=== PATIENT | female | born 2000 | race Caucasian/White ===

== ENCOUNTER 2020-07-16 21:32 | Emergency (ER) | payer MEDICAID, SELFPAY ==
[2020-07-16 21:37] VITALS: BP 127/84; PULSE 86; RESP 16; TEMP 36.3; O2SAT 100; BMI 23.2
--- NOTE | 2020-07-16 22:01 | US_ITS ---
WS: [id number] Obstetrical ultrasound, less than 14 weeks. HISTORY: Abdominal pain in . Transvaginal imaging is submitted. There is an intrauterine gestational sac towards the fundus with a mean sac diameter of 0.55 cm. Gestational age of 5 weeks and 3 days. No pole or cardiac activi ty is identified at this time. The cervix is closed. There is a small adjacent implantation or subcho rionic hemorrhage measuring 12 x 4 mm. No free fluid in the cul-de-sac. RIGHT ovary is normal size. LEFT ovary is not identified. No adnexal masses. US/US OB lmt with transvaginal IMPRESSION: 1. Probable early intrauterine gestation of 5 weeks and 3 days. No cardiac acti vity or pole are identified to confirm intrauterine gestation. 2. Recommend one week follow-up to confirm normal developing embryo.
--- NOTE | 2020-07-16 22:59 | ED_ITS ---
HPI - Female Genitourinary General: Chief complaint: Urogenital-Female Stated complaint: irregular vaginal discharge/5 weeks preg Time Seen by Provider: 07/16/20 22:13 Source: patient Mode of arrival: ambulatory Limitations: no limitations History of Present Illness: HPI Narrative: 19-year-old female states she is roughly 5 weeks . States she is had some slight bleeding clear discharge. She states this is her first in 1 to make sure she was not having a miscarriage. She has had slight abdominal cramping she rates a 1 out of 10. Denies any fever or vomiting. Denies any worsening or improving factors. Associated symptoms: Reports abdominal pain; Deny headache(s) Date of Last Menstrual Period: 06/04/20 Review of Systems Const: Denies: fever(s), chills, body aches or change in appetite Eyes: Denies: blurry vision or eye discomfort ENMT: Denies: throat pain or dental pain Card: Denies: chest pain Resp: Denies: dyspnea GI: Reports: abdominal pain : Denies: dysuria Musc: Denies: neck pain or back pain Skin/Breast: Denies: rash Neuro: Denies: headache(s) Psych: Denies: depression Farhat/Lymph: Denies: easy bruising All/Imm: Denies: urticaria [facility] ED Female Reproductive History: Date of last menstrual period: 06/04/20 Physical Exam Const: COMMON NORMALS: no acute distress, patient oriented x3 and healthy appearing HENMT: COMMON NORMALS: normocephalic and atraumatic HEAD & SCALP: normocephalic and atraumatic Eye: COMMON NORMALS: Equal, round and reactive pupils present and EOMs intact bilaterally PUPIL: Yes Equal, round and reactive pupils present Neck/C-Spine: COMMON NORMALS: full ROM and supple Chest: COMMONS NORMALS: normal inspection of the chest and normal palpation of entire chest wall Resp: COMMON NORMALS: normal respiratory effort, No retractions, No use of accessory muscles and clear to auscultation bilaterally AUSCULTATION: clear to auscultation bilaterally Cardio: COMMON NORMALS: regular rate, regular rhythm and No murmurs present (Cardio) RATE: regular rate RHYTHM: regular rhythm GI: COMMON NORMALS: Normal to inspection, nondistended, normoactive bowel sounds present, Soft to palpation, non-tender and no masses PALPATION: Yes Soft to palpation Extremity: COMMON NORMALS: normal to inspection and full ROM Neuro: COMMON NORMALS: patient oriented x3, moves all extremities and no focal motor deficits Psych: COMMON NORMALS: mental status grossly normal, Normal thought process present and cooperative THOUGHT PROCESS: Normal thought process present Skin: COMMON NORMALS: no rashes or lesions noted and no wounds GENERAL SKIN EXAM: no rashes or lesions noted Course Vital Signs: Vital signs: Vital Signs Temperature 97.3 F L 07/16/20 21:37 Pulse Rate 86 07/16/20 21:37 Respiratory Rate 16 07/16/20 21:37 Blood Pressure 127/84 07/16/20 21:37 Pulse Oximetry 100 07/16/20 23:23 MDM - Female MDM Narrative: Medical decision making narrative: Patient presents here with slight bleeding in . She has no bleeding here and is well-appearing. Patient's ultrasound shows gestational sac with no signs of ectopic. She is well-appearing here and is stable for discharge. She is to follow-up and return if worsening. Lab Data: Labs: Lab Results 07/16/20 07/16/20 Range/Units 22:58 22:58 HCG, Qual Positive H (Negative) Urine Color Yellow (Yellow) Urine Appearance Clear (CLEAR) Urine pH 6 (5-7) Ur Specific Gravit y 1.015 (1.005-1.030) Urine Protein Neg (Negative) Urine Glucose (UA) Norm (Normal) Urine Ketones Negative (Negative) Urine Blood Neg (Negative) Urine Nitrate Negative (Negative) Urine Bilirubin Neg (Negative) Urine Urobilinogen Norm (Negative) mg/dL Ur Leukocyte Dimple ase Negative (Negative) Discharge Plan Discharge Patient Disposition: Home Clinical Impression: Abdominal pain in Condition: Stable Discharge Orders: Discharge Order (Routine); Ordered 07/17/20 Ordered By: Chiquita Downing Discharge Diet: Advance as tolerated Discharge Activity: Resume usual activity Patient Instructions: Abdominal Pain (ED) Discharge Date/Time: 07/17/20 00:32 Coding Level of Care Code ED Java Flex Developer for Somg Fwtrish Exam Comprehensive
[2020-07-16 23:06] LABS: HCG Qualitative Urine. Positive (Negative)
--- NOTE | 2020-07-16 23:20 | PC.NURSE ---
TRANSVAGINAL ULTRASOUND DONE WITH NURSE REYES PRESENT. PT TOLERATED WELL. YOLK SAC OBSERVED. URINE SAMPLE TAKEN TO LAB.
[2020-07-16 23:23] VITALS: O2SAT 100
[2020-07-16 23:51] LABS: Add Urine Microscopic? NO
[2020-07-16 23:56] LABS: Bilirubin Urine Neg (Negative); Blood Urine Neg (Negative); Glucose Urine UA Norm (Normal); Ketones Urine Negative (Negative); Leukocyte Esterase Urine Negative (Negative); Nitrate Urine Negative (Negative); Protein Urine Neg (Negative); Specific Gravity, Urine 1.015 (1.005-1.030); Urine Appearance Clear (CLEAR); Urine Color Yellow (Yellow); Urobilinogen Urine Norm (Negative); pH Urine 6 (5-7)
[2020-07-17 00:31] VITALS: RESP 16
== END 2020-07-17 00:32 | disposition home or self-care (01) ==
PROVIDERS: Emergency Provider Emergency Medicine
DX: O26.891 Other specified pregnancy related conditions, first trimester (principal); R10.9 Unspecified abdominal pain; Z3A.01 Less than 8 weeks gestation of pregnancy
CPT/HCPCS: 12345; 76801; 76815; 76817; 81003; 81025; 99283

== ENCOUNTER 2020-07-28 09:46 | Emergency (ER) | payer MEDICAID, SELFPAY ==
[2020-07-28 09:57] VITALS: BP 110/71; PULSE 76; RESP 16; TEMP 37; O2SAT 100; BMI 23.2
[2020-07-28 10:04] VITALS: BP 110/71; PULSE 83; RESP 16; O2SAT 99
--- NOTE | 2020-07-28 10:45 | ED_ITS ---
HPI - General: Chief complaint: Vaginal Bleeding Stated complaint: 7 WKS , BLEEDING Time Seen by Provider: 07/28/20 10:20 Source: patient Mode of arrival: ambulatory Limitations: no limitations History of Present Illness: HPI Narrative: one episode of bright red blood this am when bearing down for BM-7 weeks Date of Last Menstrual Period: 06/04/20 Related Data: : 1 Review of Systems General: Reports: 10 or more systems reviewed and unremarkable except in HPI and below PFS ED Female Reproductive History: Date of last menstrual period: 06/04/20 : 1 Physical Exam Const: COMMON NORMALS: no acute distress, patient oriented x3, no limitations and alert GENERAL APPEARANCE: cooperative and comfortable ORIENTATION/CONSCIOUSNESS: Yes awake, Yes oriented to person, Yes oriented to place and Yes oriented to time HENMT: COMMON NORMALS: normocephalic, atraumatic, external ears normal, EAC's normal, TM's normal bilaterally and Normal external nose present HEAD & SCALP: normal to inspection, normocephalic and atraumatic FACE & SINUS: normal facial exam, sinuses nontender and face symmetric NOSE: Normal external nose present, Normal nares present and No nasal discharge present EXTERNAL EAR: Yes external ears normal EXTERNAL AUDITORY CANAL: EAC's normal TYMPANIC MEMBRANE: TM's normal bilaterally MOUTH: Normal oral and palatal mucosa present, lip normal and tongue normal THROAT: posterior oropharynx normal, tonsils normal and uvula midline Eye: COMMON NORMALS: Equal, round and reactive pupils present, EOMs intact bilaterally and conjunctivae normal GENERAL EYE: appearance normal, both eyes and all related structures and normal light reflex EYELID: eyelids normal CONJUNCTIVA: Yes conjunctivae normal PUPIL: Yes Equal, round and reactive pupils present EOM: Yes EOM abnormal DIRECT OPHTHALMOSCOPY: Yes normal light reflex Neck/C-Spine: COMMON NORMALS: full ROM, no lymphadenopathy, supple, no meningeal signs, no JVD and Thyroid normal GENERAL: Yes normal visual inspection THYROID: Thyroid normal CERVICAL SPINE: Yes cervical ROM normal and Yes normal cervical lordosis Lymph: LYMPHATIC: no lymphadenopathy noted Chest: COMMONS NORMALS: normal inspection of the chest and normal palpation of entire chest wall Resp: COMMON NORMALS: normal respiratory effort, No retractions and clear to auscultation bilaterally AUSCULTATION: clear to auscultation bilaterally Cardio: COMMON NORMALS: no JVD, regular rate, regular rhythm, S1 normal heart sound present, S2 normal heart sound present, No gallops present (Cardio), No clicks present (Cardio), No murmurs present (Cardio), No rub (Cardio) and Peripheral pulses 2+ throughout RATE: regular rate RHYTHM: regular rhythm HEART SOUNDS: S1 normal heart sound present and S2 normal heart sound present PERIPHERAL PULSES: Peripheral pulses 2+ throughout GI: COMMON NORMALS: Normal to inspection, nondistended, normoactive bowel sounds present, Soft to palpation, non-tender and no masses PALPATION: Yes Soft to palpation : COMMON NORMALS: Yes no CVA tenderness and Yes normal external appearance BLADDER/KIDNEY EXAM: Yes no CVA tenderness Back/Pelvis: COMMON NORMALS: no CVA tenderness, thoracic and lumbar spine normal to inspection, no thoracic nor lumbar tenderness and thoraco-lumbar ROM normal Extremity: COMMON NORMALS: normal to inspection, full ROM, capillary refill normal, no joint enlargement, no clubbing, cyanosis or edema, no calf tenderness and no pedal edema GENERAL: Yes normal exam except as noted Neuro: COMMON NORMALS: patient oriented x3, moves all extremities, no focal mo tor deficits, no sensory deficits noted and gait normal SENSORIUM/ORIENTATION: Yes alert, Yes oriented to person, Yes oriented to place and Yes oriented to time MENINGEAL SIGNS: Yes no meningeal signs Psych: COMMON NORMALS: mental status grossly normal, Normal thought process present, cooperative, normal affect, speech normal and activity/motor behavior normal SPEECH: Yes normal speech THOUGHT PROCESS: Normal thought process present Skin: COMMON NORMALS: no rashes or lesions noted, no wounds and turgor normal GENERAL SKIN EXAM: no rashes or lesions noted and turgor normal Course ED course: Pt presents to ER with complaints of bright red blood when bearing down for BM this morning. Pt did have sex last night as well. Pt had episode of vomiting and has intermittent nausea consistent with her . Pt had US done at 5 weeks which concluded an interauterine . We will do UA and hcg quant. Reevaluation(s): Reevaluation #1: Pt HC over 39,000 and negative for any bacteria in urine. Bleeding has stopped. We will proceed with DC and set her up with OB. Time: 12:13 Vital Signs: Vital signs: Vital Signs Temperature 98.6 F 07/28/20 09:57 Pulse Rate 83 09/29/20 10:04 Respiratory Rate 16 07/28/20 10:04 Blood Pressure 110/71 07/28/20 10:04 Pulse Oximetry 99 07/28/20 10:04 MDM - OB/Uterine Contractions Lab Data: Labs: Lab Results 07/28/20 07/28/20 Range/Units 11:09 11:14 Ser , Priyanka i-Qnt 61354.00 mIU/mL Urine Color Yellow (Yellow) Urine Appearance Clear (CLEAR) Urine pH 5 (5-7) Ur Specific Gravit y 1.005 (1.005-1.030) Urine Protein Neg (Negative) Urine Glucose (UA) Norm (Normal) Urine Ketones Negative (Negative) Urine Blood Neg (Negative) Urine Nitrate Negative (Negative) Urine Bilirubin Neg (Negative) Urine Urobilinogen Norm (Negative) mg/dL Ur Leukocyte Dimple ase Negative (Negative) Discharge Plan Discharge Patient Disposition: Home Clinical Impression: Normal in first trimester, Dysfunctional uterine bleeding Condition: Stable Prescriptions: No Action Tylenol Extra Strength 500 mg Tablet 500 mg PO PRN RF: 0 28 mg iron- 800 mcg Tablet 1 tab PO DAILY RF: 0 Discharge Orders: Discharge Order (Routine); Ordered 07/28/20 Ordered By: Anuradha Napoles Discharge Diet: Usual diet Discharge Activity: Increase activity as tolerated Activity Restrictions/Additional Instructions: Follow up with OB as scheduled. Return for any new or concerning symptoms. Rest and increase water intake over the next one week. Coding Level of Care Code ED Water Plumber for Marisabel Fwd Exam Comprehensive
--- NOTE | 2020-07-28 10:46 | PC.NURSE ---
Rounded on patient. Introduced self at this time. patient resting in bed. No distress noted. Will continue to monitor patient
[2020-07-28 11:23] LABS: Add Urine Microscopic? NO
[2020-07-28 11:30] LABS: Bilirubin Urine Neg (Negative); Blood Urine Neg (Negative); Glucose Urine UA Norm (Normal); Ketones Urine Negative (Negative); Leukocyte Esterase Urine Negative (Negative); Nitrate Urine Negative (Negative); Protein Urine Neg (Negative); Specific Gravity, Urine 1.005 (1.005-1.030); Urine Appearance Clear (CLEAR); Urine Color Yellow (Yellow); Urobilinogen Urine Norm (Negative); pH Urine 5 (5-7)
== END 2020-07-28 12:22 | disposition home or self-care (01) ==
PROVIDERS: Emergency Provider Nurse Practitioner Family
DX: O46.8X1 Other antepartum hemorrhage, first trimester (principal); Z3A.01 Less than 8 weeks gestation of pregnancy
CPT/HCPCS: 12345; 36415; 81003; 84702; 99282

== ENCOUNTER 2020-09-10 17:09 | Emergency (ER) | payer MEDICAID, SELFPAY ==
[2020-09-10 17:33] VITALS: BP 131/87; PULSE 89; RESP 18; TEMP 36.9; O2SAT 96; BMI 22.8
--- NOTE | 2020-09-10 19:30 | ED_ITS ---
HPI - Female Genitourinary General: Chief complaint: Urogenital-Female Stated complaint: 13 wks /Bleeding Time Seen by Provider: 09/10/20 18:56 Source: patient Mode of arrival: ambulatory Limitations: no limitations History of Present Illness: HPI Narrative: 19-year-old female who states she is currently 12 weeks and had some spotting earlier today. She states when she wiped she had blood lasted roughly an hour. States bleeding is since stopped. She denies passing any tissue or clots. She states she has had no pain as well. Denies any vomiting or diarrhea. Associated symptoms: Deny abdominal pain, headache(s) or nausea Date of Last Menstrual Period: 06/16/20 Review of Systems Const: Denies: fever(s), chills, body aches or change in appetite Eyes: Denies: blurry vision or eye discomfort ENMT: Denies: throat pain or dental pain Card: Denies: chest pain Resp: Denies: dyspnea GI: Denies: abdominal pain, nausea, vomiting or diarrhea : Reports: vaginal bleeding Musc: Denies: neck pain or back pain Skin/Breast: Denies: rash Neuro: Denies: headache(s) Psych: Denies: depression Farhat/Lymph: Denies: easy bruising All/Imm: Denies: urticaria [facility] ED Female Reproductive History: Date of last menstrual period: 06/16/20 Physical Exam Const: COMMON NORMALS: no acute distress, patient oriented x3 and healthy appe aring HENMT: COMMON NORMALS: normocephalic and atraumatic HEAD & SCALP: normocephalic and atraumatic Eye: COMMON NORMALS: Equal, round and reactive pupils present and EOMs intact bilaterally PUPIL: Yes Equal, round and reactive pupils present Neck/C-Spine: COMMON NORMALS: full ROM and supple Chest: COMMONS NORMALS: normal inspection of the chest and normal palpation of entire chest wall Resp: COMMON NORMALS: normal respiratory effort, No retractions, No use of accessory muscles and clear to auscultation bilaterally AUSCULTATION: clear to auscultation bilaterally Cardio: COMMON NORMALS: regular rate, regular rhythm and No murmurs present (Cardio) RATE: regular rate RHYTHM: regular rhythm GI: COMMON NORMALS: Normal to inspection, nondistended, normoactive bowel sounds present, Soft to palpation, non-tender and no masses PALPATION: Yes Soft to palpation Extremity: COMMON NORMALS: normal to inspection and full ROM Neuro: COMMON NORMALS: patient oriented x3, moves all extremities and no focal motor deficits Psych: COMMON NORMALS: mental status grossly normal, Normal thought process present and cooperative THOUGHT PROCESS: Normal thought process present Skin: COMMON NORMALS: no rashes or lesions noted and no wounds GENERAL SKIN EXAM: no rashes or lesions noted Course Vital Signs: Vital signs: Vital Signs Temperature 98.5 F 09/10/20 17:33 Pulse Rate 89 09/10/20 17:33 Respiratory Rate 18 09/10/20 17:33 Blood Pressure 131/87 09/10/20 17:33 Pulse Oximetry 96 09/10/20 17:33 MDM - Female MDM Narrative: Medical decision making narrative: Patient presents here with a threatened miscarriage. Bedside ultrasound showed IUP consistent with dates with heart rate of 142. Patient's blood type is negative will give RhoGam here. She has had no more bleeding and is stable for discharge. She is to follow-up with OB in 2 to 4 days return if worsening. Lab Data: Labs: Lab Results 09/10/20 09/10/20 09/10/20 Range/Units 19:21 19:21 19:21 WBC 13.9 H (4.5-13.0) 10^3/ uL RBC 4.28 (4.1-5.3) 10^6/u L Hgb 13.1 (11.5-15.3) g/dL Hct 38.8 (37.0-47.0) % MCV 90.7 (81-99) fL MCH 30.6 (28.0-34.0) pg MCHC 33.8 (30.0-36.0) g/dL RDW 12.1 (12.1-15.1) % Plt Count 230 (130-400) 10^3/c mm MPV 11.4 H (7.4-10.4) fL Neut % (Auto) 68.7 % Lymph % (Auto) 19.9 % [place] % (Auto) 7.7 % Eos % (Auto) 2.8 % Baso % (Auto) 0.5 % Neut # (Auto) 9.53 H (1.8-8.0) 10^3/u L Lymph # (Auto) 2.8 (1.5-6.5) 10^3/u L [place] # (Auto) 1.1 H (0.2-0.9) 10^3/u L Eos # (Auto) 0.4 (0.0-0.8) 10^3/u L Baso # (Auto) 0.1 (0.0-0.1) 10^3/u L Nucleated RBC % (a uto) 0 % Nucleated RBCs # 0.0 /100WBC Ser , Priyanka i-Qnt 560322.00 mIU/mL Rho(D) Type Negative Discharge Plan Discharge Patient Disposition: Home Clinical Impression: Threatened miscarriage Condition: Stable Prescriptions: No Action Tylenol Extra Strength 500 mg Tablet 500 mg PO PRN RF: 0 28 mg iron- 800 mcg Tablet 1 tab PO DAILY RF: 0 Discharge Orders: Discharge Order (Routine); Ordered 09/10/20 Ordered By: Chiquita Downing Discharge Diet: Advance as tolerated Discharge Activity: Resume usual activity Patient Instructions: Threatened Miscarriage (ED) Coding Level of Care Code ED Candy Bar Attendant for Marisabel Fwd Exam Comprehensive
[2020-09-10 19:39] LABS: Basophils # 0.1 10^3/uL (0.0-0.1); Basophils % 0.5 %; Eosinophils # 0.4 10^3/uL (0.0-0.8); Eosinophils % 2.8 %; Hematocrit 38.8 % (37.0-47.0); Hemoglobin 13.1 g/dL (11.5-15.3); Lymphocytes # 2.8 10^3/uL (1.5-6.5); Lymphocytes % 19.9 %; Mean Corpuscular HGB Conc 33.8 g/dL (30.0-36.0); Mean Corpuscular Hemoglobin 30.6 pg (28.0-34.0); Mean Corpuscular Volume 90.7 fL (81-99); Mean Platelet Volume 11.4 fL (7.4-10.4); Monocytes # 1.1 10^3/uL (0.2-0.9); Monocytes % 7.7 %; Neutrophils # 9.53 10^3/uL (1.8-8.0); Neutrophils % 68.7 %; Nucleated Red Blood Cells % 0 %; Platelet Count 230 10^3/cmm (130-400); Red Blood Count 4.28 10^6/uL (4.1-5.3); Red Cell Distribution Width 12.1 % (12.1-15.1); White Blood Count 13.9 10^3/uL (4.5-13.0)
[2020-09-11 00:49] VITALS: BP 135/87; PULSE 72; RESP 18; O2SAT 100
[2020-09-11 01:07] VITALS: BP 135/87; PULSE 72; RESP 16
== END 2020-09-11 01:28 | disposition home or self-care (01) ==
PROVIDERS: Emergency Provider Emergency Medicine
DX: O20.0 Threatened abortion (principal); Z3A.13 13 weeks gestation of pregnancy
CPT/HCPCS: 12345; 36415; 84702; 85025; 86850; 86900; 90384; 99281; 99282

== ENCOUNTER 2020-10-28 15:48 | Outpatient (CLI) | payer MEDICAID, SELFPAY ==
[2020-10-28 16:08] VITALS: RESP 18; TEMP 36.4
[2020-10-28 16:09] VITALS: BP 149/93; PULSE 71
[2020-10-28 16:11] VITALS: BMI 23.8
[2020-10-28 16:25] VITALS: BP 135/91; PULSE 67
[2020-10-28 16:44] VITALS: BP 154/86; PULSE 78
[2020-10-28 16:45] VITALS: BP 141/80; PULSE 75; PULSE 78; RESP 18
== END 2020-10-28 16:46 | disposition home or self-care (01) ==
LOC: OPOB 15:52 → OBGYN 16:34
PROVIDERS: Visit Provider Family Medicine
DX: O36.8190 Decreased fetal movements, unspecified trimester, not applicable or unspecified (principal); Z3A.00 Weeks of gestation of pregnancy not specified
CPT/HCPCS: 99211

== ENCOUNTER 2020-12-28 15:51 | Outpatient (RCR) | payer MEDICAID, SELFPAY | END 2021-01-27 23:59 | disposition home or self-care (01) | LOC: SPT 15:51 | PROVIDERS: Referring Provider Obstetrics & Gynecology; Visit Provider Obstetrics & Gynecology | DX: M54.5 Low back pain (principal); R29.898 Other symptoms and signs involving the musculoskeletal system | CPT/HCPCS: 97110; 97112; 97161 ==

== ENCOUNTER 2021-01-28 06:00 | Outpatient (RCR) | payer MEDICAID, SELFPAY | END 2021-02-26 23:59 | disposition home or self-care (01) | LOC: SPT 06:00 | PROVIDERS: Referring Provider Obstetrics & Gynecology; Visit Provider Obstetrics & Gynecology | DX: R29.898 Other symptoms and signs involving the musculoskeletal system (principal) | CPT/HCPCS: 97110 ==

== ENCOUNTER 2021-02-27 06:00 | Outpatient (RCR) | payer MEDICAID, SELFPAY | END 2021-03-29 23:59 | disposition home or self-care (01) | LOC: SPT 06:00 | PROVIDERS: Referring Provider Obstetrics & Gynecology; Visit Provider Obstetrics & Gynecology | DX: R29.898 Other symptoms and signs involving the musculoskeletal system (principal) | CPT/HCPCS: 97110 ==

== ENCOUNTER 2021-10-14 12:17 | Emergency (ER) | payer MEDICAID, SELFPAY ==
[2021-10-14 12:23] VITALS: BP 137/91; PULSE 81; RESP 16; TEMP 36.8; O2SAT 100
--- NOTE | 2021-10-14 12:30 | W.ED.ANIMALB ---
HPI - Animal Bite General: Chief Complaint: Animal Bite Stated Complaint: DOG BITE R ARM Time Seen by Provider: 10/14/21 12:26 History of Present Illness: HPI narrative: Patient is a 21-year-old female comes to the ED with dog bite to right arm. Bite occurred today just prior to arrival. Patient says she was trying to break up a fight between her dog and her on dog accidentally bit her when trying to break the fight up. Patient's dog is fully vaccinated and has had rabies shot as well. This is the 1st time he has had any aggressive behavior. After dog bite she washed the wound out with water and came here to the ED for further evaluation. Associated symptoms: Deny chills, fever(s) or headache(s) Review of Systems Const: Denies: fever(s), chills or fatigue Eyes: Denies: change in vision or eye discomfort ENMT: Denies: throat pain, odynophagia, nasal discharge or nasal congestion Card: Denies: chest pain, palpitations, edema, swelling of feet/ankles, dyspnea on exertion or orthopnea Resp: Denies: dyspnea, productive cough or non-productive cough GI: Denies: abdominal pain, nausea, vomiting, diarrhea, constipation or hematochezia : Denies: flank pain, dysuria or hematuria Musc: Denies: neck pain, back pain or extremity swelling Skin/Breast: Reports: new lesions (dog bite puncture wounds to right forearm); Denies: rash Neuro: Denies: headache(s), numbness in extremities or weakness in extremities [facility] ED Female Reproductive History: Date of last menstrual period: 06/16/20 Physical Exam Const: COMMON NORMALS: no acute distress, patient oriented x3, healthy appearing and alert GENERAL APPEARANCE: cooperative and comfortable HENMT: COMMON NORMALS: normocephalic HEAD & SCALP: normocephalic MOUTH: Normal oral and palatal mucosa present THROAT: posterior oropharynx normal and uvula midline Neck/C-Spine: COMMON NORMALS: supple GENERAL: Yes normal visual inspection Resp: COMMON NORMALS: normal respiratory effort, No retractions, No use of accessory muscles and clear to auscultation bilaterally AUSCULTATION: clear to auscultation bilaterally Cardio: COMMON NORMALS: regular rate, regular rhythm, S1 normal heart sound present, S2 normal heart sound present, No gallops present (Cardio), No clicks present (Cardio), No murmurs present (Cardio) and Peripheral pulses 2+ throughout RATE: regular rate RHYTHM: regular rhythm HEART SOUNDS: S1 normal heart sound present and S2 normal heart sound present PERIPHERAL PULSES: Peripheral pulses 2+ throughout GI: COMMON NORMALS: Normal to inspection, nondistended, normoactive bowel sounds present, Soft to palpation, non-tender and no masses PALPATION: Yes Soft to palpation : COMMON NORMALS: Yes no CVA tenderness BLADDER/KIDNEY EXAM: Yes no CVA tenderness Back/Pelvis: COMMON NORMALS: no CVA tenderness Extremity: NARRATIVE EXTREMITY EXAM: Right forearm?multiple superficial puncture wounds noted. Patient does have one linear larger puncture wound with no active bleeding that is approximately 0.75 cm long. Some ecchymosis and swelling noted on forearm as well. GENERAL: Yes normal exam except as noted Neuro: COMMON NORMALS: patient oriented x3 and moves all extremities SENSORIUM/ORIENTATION: Yes alert Skin: NARRATIVE SKIN EXAM: Right forearm?multiple superficial puncture wounds noted. Patient does have one linear larger puncture wound with no active bleeding that is approximately 0.75 cm long. Some ecchymosis and swelling noted on forearm as well. GENERAL SKIN EXAM: dry skin Procedures Laceration Laceration 1: Side (If applicable): right Size (cm): 0.75 Description: linear and clean Depth: simple, single layer Local Anesthetic: lidocaine 1% Amount of anesthesia used (mL): 3 Pre-repair: irrigated extensively (With iodine wash) Skin layer closed with: nylon Size (cm): 4-0 Number of sutures: 1 Technique: simple, interrupted Course Vital Signs: Vital signs: Vital Signs Temperature 98.2 F 10/14/21 12:23 Pulse Rate 96 10/14/21 12:49 Respiratory Rate 16 10/14/21 12:49 Blood Pressure 126/81 10/14/21 12:49 Pulse Oximetry 96 10/14/21 12:49 MDM - Animal Bite MDM Narrative: Medical decision making narrative: Patient is a 21-year-old female comes to the ED with dog bite to right forearm. Patient washed out wound before coming to the ED. Patient was breaking up a fight between her dog and another down and her dog bit her forearm. Patient says her dog is up-to-date on vaccinations and has had rabies shot. This is the 1st time he has had any aggressive behavior. She has a small 0.75 cm linear laceration to right forearm with no active bleeding. Patient was given updated tetanus shot while here in the ED. Laceration was then irrigated extensively with an iodine wash and then lidocaine 1% was used as local and 1 suture was placed to help close up laceration. See procedure note for further details. Patient was diagnosed with a dog bite and discharged home with a prescription for Augmentin. She was told to follow-up with her PCP in 7-10 days for reevaluation and to have her sutures removed in 7 to 10 days. Return ED precautions given. Patient understood agree with plan. Discharge Plan Discharge Patient Disposition: Home Clinical Impression: Dog bite Qualifiers: Encounter type: initial encounter Qualified Code(s): W54.0XXA - Bitten by dog, initial encounter Condition: Stable Prescriptions: New Augmentin 500-125 mg tablet 1 tab PO BID 7 Days Qty: 14 RF: 0 No Action Tylenol Extra Strength 500 mg Tablet 500 mg PO PRN RF: 0 PNV [id number] [] 28 mg iron- 800 mcg Tablet 1 tab PO DAILY RF: 0 Discharge Orders: Discharge ED (Routine); Ordered 10/14/21 Ordered By: Singh Vitale Discharge Diet: Regular Discharge Activity: Resume usual activity Patient Instructions: Animal Bite (ED), Laceration (ED) Activity Restrictions/Additional Instructions: Take full course of antibiotics as prescribed. Keep laceration site clean and dry for the next 24 hours. Then after that you can clean and re-bandage daily. Watch for signs of infection such as redness, warmth, increased tenderness and puslike drainage. If you see the signs of infection return to the ED, urgent care or PCP for reevaluation. call your PCP to schedule a follow-up appointment for reevaluation and suture removal in about 7- 10 days. Continue taking all home meds. Follow discharge plans as discussed. You can return to the ED if symptoms worsen. Coding Level of Care Code ED Head Host/Hostess for Marisabel Bah Exam Comprehensive
[2021-10-14 12:49] VITALS: BP 126/81; PULSE 96; RESP 16; O2SAT 96
[2021-10-14] MEDS: tetanus-dipt-pertussis 0.5 mL SDV IM (12:59)
== END 2021-10-14 13:13 | disposition home or self-care (01) ==
PROVIDERS: Emergency Provider Physician Assistant
DX: S51.851A Open bite of right forearm, initial encounter (principal); W54.0XXA Bitten by dog, initial encounter; Z23 Encounter for immunization
CPT/HCPCS: 90471; 90715; 99282

== ENCOUNTER 2022-01-18 08:59 | Outpatient (CLI) | payer MEDICAID, SELFPAY ==
--- NOTE | 2022-01-18 09:37 | FL_ITS ---
WS: [id number] ESOPHAGRAM TECHNIQUE: Double contrast examination was performed with thin and thick barium. Upright and [place] imag es were obtained. CLINICAL INFORMATION: NONTOXIC SINGLE THYROID NODULE COMPARISON: None. FINDINGS: Swallowing: Normal oropharyngeal phase. No evidence of aspiration or penetration. Esophagus: Mild esophageal dysmotility. No obstructing stricture or mass. Gastroesophageal reflux: Moderate reflux is visualized to the upper esophagus at the thoracic inlet i n the supine imaging No difficulties with barium tablet. No significant hiatal hernia. Fluoroscopy time: 2.5 minutes. FL/FL barium swallow [id number] IMPRESSION: 1. Mild esophageal dysmotility. No obstructing stricture or mass. 2. Moderate reflux is visualized to the upper esophagus on the supine imaging. 3. No significant hiatal hernia. 4. No difficulties with barium tablet.
--- NOTE | 2022-01-18 09:39 | XRR_ITS ---
PROCEDURE INFORMATION: Exam: XR Chest Exam date and time: 01/18/2022 10:01 AM Age: 21 years old Clinical indication: Other: Allergic rhinitis; Patient HX: Chest pain-epigastric sometimes. Sometimes gets asthma flaring up and chokes. ; Additional info: Other allergic rhinitis TECHNIQUE: Imaging protocol: XR of the chest. Views: 2 views. COMPARISON: RF FL barium swallow [id number] 01/18/2022 8:49 AM FINDINGS: Lungs: Mildly hyperaerated lungs consistent with deep inspiratory effort vs mild reactive airway disease. Pleural spaces: Unremarkable. No pleural effusion. No pneumothorax. Heart/Mediastinum: Unremarkable. No cardiomegaly. Bones/joints: Unremarkable. XR/XR chest 2V* [id number] IMPRESSION: Mildly hyperaerated lungs consistent with deep inspiratory effort vs mild reactive airway disease.
== END 2022-01-18 09:00 | disposition home or self-care (01) ==
LOC: RAD 09:02
PROVIDERS: Visit Provider Specialist
DX: E04.1 Nontoxic single thyroid nodule (principal)
CPT/HCPCS: 71046; 74220

== ENCOUNTER 2022-06-18 17:42 | Emergency (ER) | payer MEDICAID, SELFPAY ==
[2022-06-18 18:12] VITALS: BP 118/67; PULSE 76; RESP 14; TEMP 36.9; O2SAT 100; BMI 26.6
--- NOTE | 2022-06-18 19:43 | ED_ITS ---
HPI - General: Chief complaint: Vaginal Bleeding Stated complaint: , spotting Time Seen by Provider: 06/18/22 19:43 History of Present Illness: Ms Lundy is a 21-year-old lady approximately 8 weeks presenting to the ER for abdominal discomfort and spotting. She first noticed spotting which was light after attempting to have a bowel movement yesterday evening. Throughout the day today she has had some pelvic discomfort and abdominal cramping associated with slightly more bleeding. Intensity symptoms is mild to moderate. Course has persisted. Patient endorses chronic lightheadedness with nausea and generalized malaise however this is not significantly changed. No other specific changes in health, exacerbating, or alleviating factors identified. First was complicated by HELLP and premature delivery with demise shortly after . 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 Upon clarification of clinical history patient did receive a dose of RhoGAM on 24 May. Onset (ago): hour(s) Pain Consistency: intermittent Severity: moderate Relieving factors: none Exacerbating factors: none Vaginal bleeding: light Date of Last Menstrual Period: 04/18/22 Review of Systems General: Reports: 10 or more systems reviewed and unremarkable except in HPI and below PFSH ED PFSH: Medical History (Updated 07/04/22 @ 21:49 by Gene Laurent MD) No significant past medical history Surgical History (Updated 07/04/22 @ 21:49 by Gene Laurent MD) No significant past surgical history Female Reproductive History: Date of last menstrual period: 04/18/22 Physical Exam Const: COMMON NORMALS: alert GENERAL APPEARANCE: cooperative and well developed HENMT: COMMON NORMALS: normocephalic and atraumatic HEAD & SCALP: normocephalic and atraumatic THROAT: posterior oropharynx normal Eye: COMMON NORMALS: conjunctivae normal CONJUNCTIVA: Yes conjunctivae normal SCLERA: sclerae normal Neck/C-Spine: COMMON NORMALS: supple GENERAL: Yes trachea midline Resp: COMMON NORMALS: normal respiratory effort and clear to auscultation bilaterally EFFORT & INSPECTION: Yes able to speak in complete sentences AUSCULTATION: clear to auscultation bilaterally Cardio: COMMON NORMALS: regular rate and regular rhythm RATE: regular rate RHYTHM: regular rhythm GI: COMMON NORMALS: Soft to palpation PALPATION: Yes Soft to palpation and No Tenderness to palpation present (GI) : OTHER: Pelvic exam performed with auto travel counselor present. Normal external genitalia without abnormality or bleeding noted. Scant brown discharge noted within the vaginal vault. Cervix appears closed without evidence of bleeding. Extremity: GENERAL: Yes normal exam except as noted and No edema Neuro: COMMON NORMALS: moves all extremities SENSORIUM/ORIENTATION: Yes alert and No Orientation impaired Psych: COMMON NORMALS: mental status grossly normal and Normal thought process present THOUGHT PROCESS: Normal thought process present Course ED course: - Patient was seen and evaluated by me at bedside - Patient placed on cardiac monitors, IV access obtained - Initial evaluation notable for exam as above - Labs and xrays personally interpreted by me - Fluids given - Labs notable for mild leukocytosis, normal hemoglobin. Metabolic panel with mild dehydration. No evidence of UTI given squamous epithelial contamination urinalysis repeated - Imaging notable for IUP without obvious cause of hemorrhage - Upon serial reexamination after treatment the patient was improved - Based on patient history, evaluation, and testing as interpreted the most likely cause of the patient's condition is bleeding during early of uncertain etiology - The results of ED evaluation were discussed with the patient including prescriptions and/or symptomatic cares (if applicable) including appropriate and responsible use, followup plan, and return precautions. The patient verbalized understanding and felt safe for discharge. - Patient discharged in satisfactory condition. Note: Click bubbles or prepopulated shearer in note writing are used for assistance with data collection and billing and are inherently more limited than narrative and other text portions of this note. Please use narrative for additional clinical history and defer to narrative/free test for any case of contradictory information. If information appears in only free text or click bubble it should be considered present or absent as reported. Please contact note business writer for clarifications of clinical information or contradictory information. MDM is a brief summary, contradictory or erroneous seeming information should be clarified and full note should be reviewed. Vital Signs: Vital signs: Vital Signs Temperature 98.1 F 06/19/22 00:35 Pulse Rate 74 06/19/22 00:35 Respiratory Rate 18 06/19/22 00:35 Blood Pressure 116/62 06/19/22 00:35 Pulse Oximetry 97 06/19/22 00:35 Oxygen Delivery Me thod 06/18/22 22:51 MDM - OB/Uterine Contractions Medical Decision Making 21-year-old G2, P0100 presenting with abdominal cramping and spotting during . Cervix visually closed on exam without significant hemorrhage. Ultrasound with IUP. Satisfactory for outpatient management. Medical Records I reviewed the patient's medical records. Lab Data I reviewed the patient's lab results. : 06/18/22 20:30 06/18/22 20:03 Radiology Impressions Ultrasound 06/18/22: IMPRESSION: 1. Single viable intrauterine with EGA 7 weeks 4 days. 2. JAMES by ultrasound January 31, 2023. Laboratory Results WBC 11.4 10^3/uL (4.0-10.0) H 06/18/22 20:30 RBC 3.89 10^6/uL (4.1-5.3) L 06/18/22 20:30 Hgb 11.9 g/dL (11.5-15.3) 06/18/22 20: Hct 35.3 % (37.0-47.0) L 06/18/22 20: MCV 90.7 fl (81-99) 06/18/22: MCH 30.6 pg (28.0-34.0) 06/18/22 20: MCHC 33.7 g/dL (30.0-36.0) 06/18/22 20: RDW 12.0 % (12.1-15.1) L 06/18/22: Plt Count 248 10^3/cmm (130-400) 06/18/22 20:30 MPV 11.0 fL (7.4-10.4) H 06/18/22 20:30 Neut % (Auto) 68.2 % 06/18/22:30 Lymph % (Auto) 20.2 % 06/18/22 20:30 [place] % (Auto) 6.3 % 06/18/22 20:30 Eos % (Auto) 4.5 % 06/18/22 20:30 Baso % (Auto) 0.5 % 06/18/22 20:30 Neut # (Auto) 7.74 10^3/uL (1.8-7.7) H 06/18/22 20:30 Lymph # (Auto) 2.3 10^3/uL (0.8-4.8) 06/18/22 20:30 [place] # (Auto) 0.7 10^3/uL (0.2-0.9) 06/18/22 20:30 Eos # (Auto) 0.5 10^3/uL (0.0-0.8) 06/18/22 20:30 Baso # (Auto) 0.1 10^3/uL (0.0-0.1) 06/18/22 20:30 Nucleated RBC % (auto) 0 % 06/18/22: Nucleated RBCs # 0.0 /100WBC 06/18/22 20:30 Sodium 135 mmol/L (136-145) L 06/18/22 20:03 Potassium 3.7 mmol/L (3.5-5.1) 06/18/22 20:03 Chloride 98 mmol/L (98-107) 06/18/22 20:03 Carbon Dioxide 21 mmol/L (22-29) L 06/18/22 20:03 Anion Gap 19.7 (5-19) H 06/18/22 20:03 BUN 5 mg/dL (6-20) L 06/18/22 20:03 Creatinine 0.7 mg/dL (0.5-0.9) 06/18/22 20:03 GFR Calculation 104.6 mL/min (90-130) 06/18/22 20:03 Glucose 79 mg/dL (65-115) 06/18/22 20:03 Calculated Osmolality 276 mOsm/kg (285-295) L 06/18/22 20:03 Calcium 9.8 mg/dL (8.5-10.5) 06/18/22 20:03 Total Bilirubin 0.7 mg/dL (0.15-1.2) 06/18/22 20:03 AST 23 U/L (0-32) 06/18/22 20:03 ALT 18 U/L (0-33) 06/18/22 20:03 Alkaline Phosphatase 107 U/L (35-105) H 06/18/22 20:03 Total Protein 8.1 g/dL (6.6-8.7) 06/18/22 20:03 Albumin 5.1 g/dL (3.5-5.2) 06/18/22 20:03 Globulin 3.0 g/dL (1.3-4.6) 06/18/22 20:03 Ser , Semi-Qnt 342661.00 mIU/mL 06/18/22 20:03 Urine Color Yellow (Yellow) 06/18/22 22:15 Urine Appearance Clear (CLEAR) 06/18/22 22:15 Urine pH 6 (5-7) 06/18/22 22:15 Ur Specific [place] 1.010 (1.005-1.030) 06/18/22 22:15 Urine Protein Neg (Negative) 06/18/22 22:15 Urine Glucose (UA) Norm (Normal) 06/18/22 22:15 Urine Ketones 2+ (Negative) H 06/18/22 22:15 Urine Blood Neg (Negative) 06/18/22 22:15 Urine Nitrate Negative (Negative) 06/18/22 22:15 Urine Bilirubin Neg (Negative) 06/18/22 22:15 Urine Urobilinogen Neg mg/dL (Negative) 06/18/22 22:15 Ur Leukocyte Esterase Negative (Negative) 06/18/22 22:15 Urine RBC 5-10 /hpf (0-2) H 06/18/22 19:55 Urine WBC 10-15 /hpf (0-5) H 06/18/22 19:55 Ur Squamous Epith Cells 15-25 /hpf (0-5) H 06/18/22 19:55 Amorphous Sediment Not Reportable 06/18/22 19:55 Urine Bacteria 1+ /hpf (NONE) H 06/18/22 19:55 Urine Mucus 1+ /hpf 06/18/22 19:55 Blood Type A Negative 06/18/22 20:03 Rho(D) Type Negative 06/18/22 20:03 Antibody Screen Positive 06/18/22 20:03 Antibody Identification Anti-D 06/18/22 20:03 Discharge Plan Discharge Patient Disposition: Home Clinical Impression: Threatened miscarriage in early Condition: Stable Prescriptions: New Vitamin B-6 25 mg tablet 25 mg PO TID PRN (Reason: nausea and vomiting) Qty: 20 0RF doxylamine succinate 25 mg tablet 12.5 mg PO Q6H PRN (Reason: nausea and vomiting) Qty: 20 0RF No Action Tylenol Extra Strength 500 mg Tablet 500 mg PO PRN PNV cmb#[id number] fumarate-FA [] 28 mg iron- 800 mcg Tablet 1 tab PO DAILY Discharge Orders: Discharge ED (Routine); Ordered 06/18/22 Ordered By: Gene Laurent Discharge Diet: Usual diet Patient Instructions: Threatened Miscarriage (ED), Pelvic Rest (ED) Activity Restrictions/Additional Instructions: Thank you for visiting the emergency department. You were seen and evaluated for abnormal bleeding during early . The exact cause of your symptoms is unclear as discussed. I recommend contacting your OB physician on Monday regarding your visit. Please return to the emergency department for anything that you are concerned about and feel needs emergency department evaluation. Coding Level of Care Code ED Tallow Pumper for Chg Fwd Exam Comprehensive
[2022-06-18] MEDS: sodium chloride 0.9% 1,000 ML 999 ML IV (20:11)
--- NOTE | 2022-06-18 20:22 | USR_ITS ---
PROCEDURE INFORMATION: Exam: US First Trimester, Transabdominal and US , Transvaginal Exam date and time: 06/18/2022 8:50 PM Age: 21 years old Clinical indication: complicated by abdominal or pelvic pain; Left lower quadrant; First trimester (<14 weeks 0 days); Gestational age or lmp: 7 weeks 4 day; ; Additional info: Bleeding, cramping, approx 8 weeks preg LABS AND CLINICAL REPORTS: Last menstrual period start date: 04/18/2022 Gestational age (Established): 8 w 5 d Estimated due date (Established): 01/23/2023 TECHNIQUE: Imaging protocol: Real-time transabdominal obstetrical ultrasound of the maternal pelvis and a first trimester , less than 14 weeks 0 days, with image documentation. Transvaginal imaging was used for better evaluation of the fetus, adnexa, and/or cervix. COMPARISON: US OB lmt with transvaginal 07/16/2020 10:46 PM FINDINGS: Gestation: Intrauterine gestation is visualized. pole is visualized. Yolk sac is visualized. Yolk sac measures 3 mm. Embryonic/ heart rate: 167 bpm Extra-embryonic membranes/Placenta: Unremarkable. No subchorionic bleed. Amniotic fluid: Amniotic fluid and extra-amniotic fluid is normal for gestational age. BIOMETRY: Gestational age (AUA): 7 w 4 d. Single viable intrauterine with EGA 7 weeks 4 days. Estimated due date (AUA): JAMES by ultrasound January 31, 2023. [place]-Rump length (CRL): 13.2 mm. EGA (CRL) is 7 w 4 d MATERNAL: Uterus: Unremarkable. Cervix: The cervix is not well visualized. Right ovary/adnexa: Right ovary measures 2.6 cm x 2.6 cm x 1.8 cm with estimated volume 6.9 cc. Left ovary/adnexa: Left ovary measures 2.6 cm x 3 cm x 3.4 cm with estimated volume 14.5 cc. 1.5 x 1.3 cm simple left ovarian cyst. Intraperitoneal space: No intraperitoneal free fluid. US/US OB <= 14 weeks fetus [id number] IMPRESSION: 1. Single viable intrauterine with EGA 7 weeks 4 days. 2. JAMES by ultrasound January 31, 2023.
[2022-06-18 20:30] VITALS: BP 114/71; PULSE 73; O2SAT 93
[2022-06-18 20:39] LABS: Basophils # 0.1 10^3/uL (0.0-0.1); Basophils % 0.5 %; Eosinophils # 0.5 10^3/uL (0.0-0.8); Eosinophils % 4.5 %; Hematocrit 35.3 % (37.0-47.0); Hemoglobin 11.9 g/dL (11.5-15.3); Lymphocytes # 2.3 10^3/uL (0.8-4.8); Lymphocytes % 20.2 %; Mean Corpuscular HGB Conc 33.7 g/dL (30.0-36.0); Mean Corpuscular Hemoglobin 30.6 pg (28.0-34.0); Mean Corpuscular Volume 90.7 fl (81-99); Monocytes # 0.7 10^3/uL (0.2-0.9); Monocytes % 6.3 %; Neutrophils # 7.74 10^3/uL (1.8-7.7); Neutrophils % 68.2 %; Nucleated Red Blood Cells % 0 %; Platelet Count 248 10^3/cmm (130-400); Red Blood Count 3.89 10^6/uL (4.1-5.3); White Blood Count 11.4 10^3/uL (4.0-10.0)
[2022-06-18 20:52] LABS: Specific Gravity, Urine 1.015 (1.005-1.030); Urine Appearance Clear (CLEAR); Urine Color Yellow (Yellow); pH Urine 6 (5-7)
[2022-06-18 20:53] LABS: Add Urine Microscopic? YES; Bilirubin Urine Neg (Negative); Blood Urine 3+ (Negative); Glucose Urine UA Norm (Normal); Ketones Urine 2+ (Negative); Leukocyte Esterase Urine 1+ (Negative); Nitrate Urine Negative (Negative); Protein Urine Neg (Negative); Squamous Epithelial Cell Urine 15-25 /hpf (0-5); Urobilinogen Urine Neg (Negative)
[2022-06-18 20:54] LABS: Add Urine Culture? No; Bacteria Urine 1+ /hpf; Mucus Urine 1+ /hpf
[2022-06-18 20:57] LABS: Alanine Aminotransferase 18 U/L (0-33); Albumin Level 5.1 g/dL (3.5-5.2); Alkaline Phosphatase 107 U/L (35-105); Aspartate Amino Transferase 23 U/L (0-32); Blood Urea Nitrogen 5 mg/dL (6-20); Calcium 9.8 mg/dL (8.5-10.5); Carbon Dioxide 21 mmol/L (22-29); Chloride 98 mmol/L (98-107); Glomerular Filtration Rate 104.6 mL/min (90-130); Glucose 79 mg/dL (65-115); Osmolality Calculated 276 mOsm/kg (285-295); Sodium 135 mmol/L (136-145); Total Bilirubin 0.7 mg/dL (0.15-1.2); Total Protein 8.1 g/dL (6.6-8.7)
[2022-06-18 21:00] LABS: Anion Gap 19.7 (5-19); Potassium 3.7 mmol/L (3.5-5.1)
[2022-06-18 22:41] LABS: Add Urine Microscopic? NO; Charge for UA Resulting for Rev
[2022-06-18 22:44] LABS: Bilirubin Urine Neg (Negative); Blood Urine Neg (Negative); Glucose Urine UA Norm (Normal); Ketones Urine 2+ (Negative); Leukocyte Esterase Urine Negative (Negative); Nitrate Urine Negative (Negative); Protein Urine Neg (Negative); Urine Appearance Clear (CLEAR); Urine Color Yellow (Yellow); Urobilinogen Urine Neg (Negative); pH Urine 6 (5-7)
[2022-06-18 22:51] VITALS: BP 134/73; PULSE 93; RESP 14; TEMP 36.3; O2SAT 100
--- NOTE | 2022-06-18 22:57 | PC.NURSE ---
Patient with c/o vaginal spotting and low pelvic pain, 8 weeks . Pelvic exam done, us done, patient banded for rhogam and currently waiting.
[2022-06-19] VITALS: BP 134/73; PULSE 81; RESP 18; TEMP 36.8
[2022-06-19 00:15] VITALS: BP 133/70; PULSE 75; RESP 18; TEMP 36.8
[2022-06-19 00:35] VITALS: BP 116/62; PULSE 74; RESP 18; TEMP 36.7; O2SAT 97
== END 2022-06-19 00:48 | disposition home or self-care (01) ==
PROVIDERS: Emergency Provider Emergency Medicine
DX: O20.0 Threatened abortion (principal); Z3A.01 Less than 8 weeks gestation of pregnancy
CPT/HCPCS: 76801; 80053; 80503; 81001; 81003; 84702; 85025; 86850; 86870; 86900; 87210; 90384; 99284; J7030

== ENCOUNTER 2022-09-14 08:22 | Outpatient (CLI) | payer MEDICAID, SELFPAY ==
[2022-09-14 08:34] VITALS: BP 119/76; PULSE 68
--- NOTE | 2022-09-14 08:42 | US_ITS ---
WS: [id number] ULTRASOUND OB LIMITED TECHNIQUE: Limited ultrasound examination of the fetus. CLINICAL INFORMATION: vaginal bleeding. assess placenta, fluid, well being COMPARISON: June 18, 2022 FINDINGS: Closed cervix measures 3.1 cm Single interuterine gestation. presentation is breech Placental location is anterior. Placenta grade: 0. heart rate 138 BPM. SHADY 12.4 cm EGA : 21 weeks 0 days JAMES : January 25, 2023 US/US OB limited [id number] IMPRESSION: IMPRESSION: 1. Single live intrauterine . 2. Breech presentation. Normal cardiac activity. 3. Normal placenta. 4. SHADY 12.4 cm. 5. Closed cervix.
[2022-09-14 09:00] VITALS: BP 113/68; PULSE 67; RESP 16
[2022-09-14 09:04] VITALS: BP 113/68; PULSE 67
[2022-09-14 09:11] VITALS: BMI 26.9
[2022-09-14 09:12] LABS: Add Urine Culture? No; Bilirubin Urine Neg (Negative); Blood Urine Neg (Negative); Glucose Urine UA Norm (Normal); Ketones Urine Negative (Negative); Leukocyte Esterase Urine Negative (Negative); Nitrate Urine Negative (Negative); Protein Urine Neg (Negative); Specific Gravity, Urine 1.015 (1.005-1.030); Urine Appearance Clear (CLEAR); Urine Color Yellow (Yellow); Urobilinogen Urine Norm (Negative); pH Urine 6 (5-7)
== END 2022-09-14 09:40 | disposition home or self-care (01) ==
LOC: OPOB 08:24 → OBGYN 08:28 → OPOB 08:28 → OBGYN 08:29
PROVIDERS: Visit Provider Obstetrics & Gynecology
DX: O46.90 Antepartum hemorrhage, unspecified, unspecified trimester (principal); Z3A.00 Weeks of gestation of pregnancy not specified
CPT/HCPCS: 76815; 81001; 99211

== ENCOUNTER 2022-09-26 19:45 | Outpatient (CLI) | payer MEDICAID, SELFPAY ==
[2022-09-26 19:45] VITALS: RESP 16
[2022-09-26 20:00] VITALS: BP 139/74; PULSE 97
[2022-09-26 20:06] VITALS: BMI 28.5
--- NOTE | 2022-09-26 20:35 | P.TNLD_ITS ---
OB L&D Triage Visit Information: Date of evaluation: 09/26/22 Comments/Additional reason(s) for visit: 21yo C. female at 22wk IUP c/o decreased movement today. Denies LOF or bleeding. Hx of PNC in [place]. hx of PIH, currently on ASA and Lovenox. Evaluation: Baseline heart rate: 140 monitor accelerations: Present 10x10 monitor decelerations: None Laboratory results: Laboratory Tests 09/26/22 19:50 Amorphous Sediment Not Reportable Vital signs: Vital Signs - 24 hr 09/26/22 19:45 09/26/22 20:00 09/26/22 19:45 Pulse Rate 97 Respiratory Rate 16 16 Blood Pressure 139/74 Final Diagnosis Final Diagnosis (1) 22 weeks gestation of : Status: Acute Code(s): Z3A.22 - 22 weeks gestation of (2) Decreased movement: Status: Acute Code(s): O36.8190 - Decreased movements, unspecified trimester, not applicable or unspecified (3) History of induced hypertension: Plan: Continue current meds. PO hydration Follow up with OB attending as scheduled. Check UA Status: Acute Code(s): Z87.59 - Personal history of other complications of , childbirth and the puerperium Coding Level of Care Code Acute Hypo Splasher for Chg Fwd Diagnoses 22 weeks gestation of Z3A.22 Decreased movement O36.8190 History of induced hypertension Z87.59
[2022-09-26 20:42] VITALS: BP 109/62; PULSE 75
[2022-09-26 20:52] VITALS: BP 112/62; PULSE 84
[2022-09-26 21:02] VITALS: BP 108/58; PULSE 80
[2022-09-26 21:03] LABS: Add Urine Culture? No; Bilirubin Urine Neg (Negative); Blood Urine Neg (Negative); Glucose Urine UA Norm (Normal); Ketones Urine Negative (Negative); Leukocyte Esterase Urine Negative (Negative); Nitrate Urine Negative (Negative); Protein Urine Neg (Negative); Specific Gravity, Urine 1.015 (1.005-1.030); Urine Appearance Clear (CLEAR); Urine Color Yellow (Yellow); Urobilinogen Urine Norm (Negative); WBC Urine 0-4 /hpf (0-5); pH Urine 6 (5-7)
== END 2022-09-26 21:17 | disposition home or self-care (01) ==
LOC: OPOB 19:51 → OBGYN 19:53
PROVIDERS: Visit Provider Obstetrics & Gynecology
DX: O36.8190 Decreased fetal movements, unspecified trimester, not applicable or unspecified (principal); Z3A.00 Weeks of gestation of pregnancy not specified
CPT/HCPCS: 12345; 81001; 99211

== ENCOUNTER 2022-10-08 14:09 | Outpatient (CLI) | payer MEDICAID, SELFPAY ==
[2022-10-08 14:29] VITALS: BP 121/69; PULSE 89; TEMP 35.9
[2022-10-08 14:33] VITALS: RESP 16
[2022-10-08 14:44] VITALS: BP 118/59; PULSE 75
[2022-10-08 14:47] VITALS: BMI 29.0
[2022-10-08 14:54] LABS: Actim Prom Negative
[2022-10-08 14:59] VITALS: BP 119/56; PULSE 81
[2022-10-08 15:07] LABS: Add Urine Culture? No; Bacteria Urine 1+ /hpf; Bilirubin Urine Neg (Negative); Blood Urine Neg (Negative); Glucose Urine UA Norm (Normal); Ketones Urine Negative (Negative); Leukocyte Esterase Urine Trace (Negative); Nitrate Urine Negative (Negative); Protein Urine Neg (Negative); Urine Appearance Clear (CLEAR); Urine Color Straw (Yellow); Urobilinogen Urine Norm (Negative); pH Urine 7 (5-7)
[2022-10-08 15:14] VITALS: BP 111/59; PULSE 86
[2022-10-08 15:29] VITALS: BP 136/70; PULSE 109
--- NOTE | 2022-10-08 15:36 | P.TNLD_ITS ---
OB L&D Triage Visit Information: Date of evaluation: 10/08/22 Reason for evaluation: other (pelvic pain) Comments/Additional reason(s) for visit: 22yo C. female at 24 wk IUP with ED01/25/22 in c/o pelvic pain x 1 wk. Receives outside care. Denies Vaginal bleeding or decreased movement. Evaluation: Baseline heart rate: 125 Laboratory results: Laboratory Tests 10/08/22 10/08/22 14:44 14:44 Insulin-like GF I Negative Urine Color Straw Urine Appearance Clear Urine pH 7 Ur Specific Gravit y 1.010 Urine Protein Neg Urine Glucose (UA) Norm Urine Ketones Negative Urine Blood Neg Urine Nitrate Negative Urine Bilirubin Neg Urine Urobilinogen Norm Ur Leukocyte Dimple ase Trace H Urine RBC None Urine WBC 5-10 H Ur Squamous Epith Cells 5-10 H Amorphous Sediment Not Reportable Urine Bacteria 1+ H Vital signs: Vital Signs - 24 hr 10/08/22 14:29 10/08/22 14:44 10/08/22 14:59 Temperature 96.6 F L Pulse Rate 89 75 81 Blood Pressure 121/69 118/59 119/56 10/08/22 15:14 10/08/22 15:29 Temperature Pulse Rate 86 109 H Blood Pressure 111/59 136/70 Final Diagnosis Final Diagnosis (1) Cystitis during in second trimester, antepartum: Plan: 1. Encourage PO hydration 2. UA- to lab 3. Rx Macrobid 100mg BID x 7 days 4. F/U with OB in 2 wk or as scheduled Status: Acute Code(s): O23.12 - Infections of bladder in , second trimester (2) 24 weeks gestation of : Status: Acute Code(s): Z3A.24 - 24 weeks gestation of Other Information/Follow up F/U with OB 2 wks or as scheduled. Coding Level of Care Code Acute Nurse'S Assistant for [facility] Diagnoses Cystitis during in second trimester, antepartum O23.12 24 weeks gestation of Z3A.24
== END 2022-10-08 15:40 | disposition home or self-care (01) ==
LOC: OPOB 14:14 → OBGYN 14:15
PROVIDERS: Visit Provider Obstetrics & Gynecology
DX: O26.899 Other specified pregnancy related conditions, unspecified trimester (principal); Z3A.00 Weeks of gestation of pregnancy not specified; R10.9 Unspecified abdominal pain; N89.8 Other specified noninflammatory disorders of vagina; R10.2 Pelvic and perineal pain
CPT/HCPCS: 12345; 81001; 84112; 99211

== ENCOUNTER 2022-11-09 18:00 | Outpatient (CLI) | payer MEDICAID, SELFPAY ==
[2022-11-09] VITALS (7 sets, daily range): BP systolic 112–132; BP diastolic 59–72; PULSE 80–91; RESP 17; TEMP 36.1–36.2; BMI 31.2
--- NOTE | 2022-11-09 18:30 | USR_ITS ---
PROCEDURE INFORMATION: Exam: US Biophysical Profile Without Non-Stress Test Exam date and time: 11/09/2022 7:25 PM Age: 22 years old Clinical indication: Pain indication: Lower pelvic pain x 30 minutes, no vaginal bleeding. ; Additional info: Bpp with shady and placenta evaluation TECHNIQUE: Imaging protocol: US biophysical profile without non-stress testing. COMPARISON: US OB limited [id number] 09/14/2022 8:57 AM FINDINGS: heart rate: 147 bpm presentation: Transverse Placenta: Anterior grade 1 placenta without previa. Amniotic fluid: Amniotic fluid volume is normal. Amniotic fluid index: SHADY is 20 cm. BIOPHYSICAL PROFILE: breathing movement (BPP): 0/2 body movement (BPP): 2/2 tone (BPP): 2/2 Amniotic fluid (BPP): 2/2 Biophysical profile score (BPP): 6/8 MATERNAL ANATOMY: Cervix: Cervical length measures 4.7 cm. US/US OB BPP wo NST [id number] IMPRESSION: Biophysical profile score is 6/8. No respiratory motion demonstrated in 30 minutes of observation, according to technologist's note.
[2022-11-09 19:28] LABS: Nitrazine Paper, PH Negative
[2022-11-09 19:36] LABS: Actim Prom Negative
[2022-11-09 19:40] LABS: Bilirubin Urine Neg (Negative); Blood Urine Neg (Negative); Glucose Urine UA Norm (Normal); Ketones Urine Negative (Negative); Leukocyte Esterase Urine Negative (Negative); Nitrate Urine Negative (Negative); Protein Urine Neg (Negative); RBC Urine 0-4 /hpf (0-2); Squamous Epithelial Cell Urine 0-4 /hpf (0-5); Urine Appearance Clear (CLEAR); Urine Color Yellow (Yellow); Urobilinogen Urine Norm (Negative); WBC Urine 0-4 /hpf (0-5); pH Urine 7 (5-7)
[2022-11-09 19:41] LABS: Add Urine Culture? No; Bacteria Urine TRACE /hpf
== END 2022-11-09 20:58 | disposition home or self-care (01) ==
LOC: OPOB 18:03 → OBGYN 18:05
PROVIDERS: Visit Provider Obstetrics & Gynecology
DX: O36.8190 Decreased fetal movements, unspecified trimester, not applicable or unspecified (principal); Z3A.00 Weeks of gestation of pregnancy not specified; R10.2 Pelvic and perineal pain
CPT/HCPCS: 59025; 76819; 81001; 83986; 84112; 99211

== ENCOUNTER → 2024-11-29 10:18 | Outpatient (BNVA) | payer MEDICAID, SELFPAY | PROVIDERS: Referring Provider Nurse Practitioner Family; Visit Provider Obstetrics & Gynecology | DX: R30.0 Dysuria (principal) | CPT/HCPCS: 81000 ==